=== PATIENT | male | born 1950 | race Caucasian/White ===

== ENCOUNTER 2021-10-25 04:18 | Day surgery (SDC) | payer OTHER, BC ==
[2021-10-08 15:26] VITALS: BMI 34.4
[2021-10-25] MEDS ORDERED: GLYCOPYRROLATE 0.2 MG/1 ML VIAL ONE (07:48)
[2021-10-25] MEDS ORDERED: LIDOCAINE HCL/PF 2% SDV 5ML VIAL ONE (07:48)
[2021-10-25] MEDS ORDERED: PROPOFOL 20 ML ONE ×3 (07:49)
[2021-10-25] MEDS ORDERED: MIDAZOLAM HCL 2 MG/2 ML SINGLE DOSE VIAL ONE (07:49)
[2021-10-25] MEDS ORDERED: LACTATED RINGERS SOLUTION 1,000 ML IV SCH (10:15)
[2021-10-25 10:19] VITALS: TEMP 98
[2021-10-25 10:50] LABS: BASO % 0.8 % (0-2.0); EOS % 1.5 % (0-4.5); HEMATOCRIT 40.9 % (35.4-49); LYMPH % 25.8 % (8-40); MCH 30.8 pg (25.7-33.7); MCHC 34.2 g/dl (32.0-35.9); MEAN CELL VOLUME 90.2 fl (80-96); MEAN PLT VOLUME 8.6 fl (7.5-11.1); MONO % 8.7 % (3.8-10.2); NEUT % 63.2 % (42.8-82.8); PLATELET COUNT 156 10^3/uL (134-434); RBC 4.54 M/mm3 (4.00-5.60); RDW 14.8 % (11.9-15.9); WHITE BLOOD COUNT 6.6 K/mm3 (4.0-10.0)
[2021-10-25 11:02] LABS: ACTIVATED PTT 30.8 SECONDS (25.2-36.5); INR 0.97 (0.83-1.09); PROTHROMBIN TIME (PATIENT) 11.2 SEC (9.7-13.0)
[2021-10-25 11:08] LABS: ALBUMIN 3.6 g/dl (3.4-5.0); CALCIUM 9.3 mg/dL (8.5-10.1)
[2021-10-25 11:09] LABS: BLOOD UREA NITROGEN 22.2 mg/dL (7-18)
[2021-10-25 11:12] LABS: CREATININE 1.1 mg/dL (0.55-1.3)
[2021-10-25 11:13] LABS: BILIRUBIN,TOTAL 1.5 mg/dL (0.2-1); TOT PROT 6.3 g/dl (6.4-8.2)
[2021-10-25 11:33] VITALS: BP 142/90; PULSE 76
== END 2021-10-25 12:10 | disposition home or self-care (01) ==
LOC: JASU-SURG 04:18
PROVIDERS: ATTEND Urology
PROC: 0V507ZZ Destruction of Prostate, Via Natural or Artificial Opening (ICD-10-PCS; principal; 2021-10-25 10:00)
DX: Z53.09 Procedure and treatment not carried out because of other contraindication (principal); R33.8 Other retention of urine
CPT/HCPCS: 36415; 80053; 82962; 84484; 85025; 85610; 85730; 93005; 93010; 94760